=== PATIENT | female | born 1995 | race Caucasian/White ===

== ENCOUNTER 2024-06-17 08:13 | Emergency (ER) | payer OTHER, SELFPAY ==
[2024-06-17] VITALS (8 sets, daily range): BP systolic 104–113; BP diastolic 57–66; PULSE 77–99; RESP 20; TEMP 36.6; O2SAT 96–100; BMI 23.3
--- NOTE | 2024-06-17 09:16 | ED_ITS ---
HPI - Nausea/Vomiting/Diarrhea General Chief complaint: Nausea/Vomiting/Diarrhea Stated complaint: V/D Time Seen by Provider: 06/17/24 09:16 Source: patient Mode of arrival: Ambulatory History of Present Illness HPI Narrative: 28-year-old female without any past medical history presents to the ED from home for evaluation of nausea vomiting diarrhea ongoing present for the past 6 hours states it started after she had some saul last night states that since then has been unable to tolerate p.o. liquids and solids also reporting heartburn and headache. She denies any actual chest pain shortness of breath fever chills or any other GI/ symptoms at this time. Related Data Previous Rx's Medication Instructions Recorded famotidine 20 mg tablet (Pepcid) 20 mg PO DAILY 2 weeks #14 tabs 06/17/24 ondansetron 4 mg disintegrating 4 mg PO Q8H PRN nausea and 06/17/24 tablet vomiting 5 days #15 tabs Allergies Allergy/AdvReac Type Severity Reaction Status Date / Time No Known Drug Allergies Allergy Verified 06/17/24 08:35 Review of Systems Review of Systems Narrative: General: Denies fever, chills, weight loss HEENT: Denies headache, eye drainage, eye irritation, head trauma, sore throat, voice change Cardiovascular: Denies any chest pain, palpitations, shortness of breath, tachycardia Respiratory: Denies any shortness of breath, cough, wheeze, stridor GI/: Positive, nausea, vomiting, diarrhea, Denies any abdominal pain bright red blood per rectum, melanotic stools, urinary frequency, urinary retention, dysuria, hematuria MSK: Denies any joint pain, muscle pains, swelling Skin: Denies any rashes, lesions, discoloration Neuro: Denies any headache, lightheadedness, dizziness, fainting, weakness Psych: Denies SI/HI Patient History Social History Smoking Status: Never smoker Smoking Status: Never smoker Exam Narrative Exam Narrative: General: Cooperative, comfortable, well-developed, not in acute distress HEENT: Normocephalic, atraumatic, PERRLA, normal sclera, eyelids normal, Neck: Active full range of motion, atraumatic Chest: Normal to inspection, negative crepitus, no overlying erythema ecchymosis Respiratory: Normal respiratory effort, not in acute respiratory distress, clear to auscultation bilaterally negative cough, wheeze, tachypnea, rhonchi, rales Cardiology: Regular rate rhythm negative gallop, murmur, rubs GI/: Normal to inspection, soft, nonrigid, no tenderness to palpation, exam deferred MSK: Full range of active range of motion of all 4 extremities, atraumatic Skin: No rashes lesions noted Neuro: Alert awake oriented x3, moves all 4 extremities spontaneously, cranial nerves intact, able to answer all questions appropriately follows commands appropriately Psych: Cooperative, negative suicidal or homicidal ideations Initial Vital Signs Initial Vital Signs: Vital Signs Temperature 97.9 F 06/17/24 08:31 Pulse Rate 99 H 06/17/24 08:31 Respiratory Rate 20 06/17/24 08:31 Blood Pressure 108/60 06/17/24 08:31 Pulse Oximetry 100 06/17/24 08:31 Oxygen Delivery Method Room Air 06/17/24 08:31 Course Orders Ordered: ED Orders 06/17/24 09:40 Complete Blood Count AUTO DIFF Stat Comprehensive Metabolic Panel Stat Lipase Stat MAG [Magnesium] Stat Discontinued Medications Famotidine (Famotidine 20 Mg/2 Ml Vial) 20 mg IV NOW ONE Stop: 06/17/24 09:23 Last Admin: 06/17/24 10:00 Dose: 20 mg Documented By: LADONNA Sodium Chloride (Normal Saline 0.9%) 1,000 mls @ 1,000 mls/hr IV BOLUS ONE Stop: 06/17/24 10:20 Last Admin: 06/17/24 10:00 Dose: 1,000 mls/hr Documented By: LADONNA Ondansetron HCl (Ondansetron 4 Mg/2 Ml Inj) 4 mg IV NOW ONE Stop: 06/17/24 09:22 Last Admin: 06/17/24 10:00 Dose: 4 mg Documented By: LADONNA Vital Signs Vital signs: Vital Signs - 8 hr 06/17/24 08:31 06/17/24 08:37 06/17/24 08:38 Temperature 97.9 F Pulse Rate 99 H 85 87 Respiratory Rate 20 Blood Pressure 108/60 Pulse Oximetry 100 96 100 Oxygen Delivery Method Room Air 06/17/24 08:38 06/17/24 09:00 06/17/24 09:00 Temperature Pulse Rate 83 Respiratory Rate Blood Pressure 113/66 104/58 L Pulse Oximetry 100 Oxygen Delivery Method 02/20/25 09:30 06/17/24 09:30 06/17/24 09:43 Temperature Pulse Rate 79 92 H Respiratory Rate Blood Pressure 107/58 L Pulse Oximetry 100 100 Oxygen Delivery Method 06/17/24 09:43 06/17/24 10:00 06/17/24 10:00 Temperature Pulse Rate 94 H Respiratory Rate Blood Pressure 111/58 L 104/57 L Pulse Oximetry 100 Oxygen Delivery Method MDM - Nausea/Vomiting/Diarrhea Differential Diagnosis Differential diagnosis: Likely food poisoning, gastroenteritis, drug-induced nausea and vomiting, dehydration and other (Urinary tract infection) Lab Data 06/17/24 09:40 06/17/24 09:40 Labs: Lab Results 06/17/24 Range/Units 09:40 WBC 13.2 H (4.5-11.0) X10^3/uL RBC 4.36 (4.0-5.2) X10^6/uL Hgb 13.4 (12.0-16.0) g/dL Hct 39.6 (36-46) % MCV 91.0 (80-100) fL MCH 30.7 (26-34) PG MCHC 33.8 (30-36) % RDW 13.0 (11.6-14.8) % Plt Count 306 (150-400) X10^3/uL Neut % (Auto) 92.6 H (50-75) % Lymph % (Auto) 3.5 L (25-40) % [place] % (Auto) 3.5 (3-14) % Eos % (Auto) 0.0 L (2-4) % Baso % (Auto) 0.4 (0-2) % Neut # (Auto) 82798 H (8426-3106) /uL Lymph # (Auto) 500 L (1117-7393) /uL [place] # (Auto) 500 (0-900) /uL Eos # (Auto) 0 (0-450) /uL Baso # (Auto) 0 (0-100) /uL Sodium 136 L (137-145) mmol/L Potassium 4.4 (3.4-5.1) mmol/L Chloride 102 (98-107) mmol/L Carbon Dioxide 24 (22-32) mmol/L BUN 18 H (7-17) mg/dL Creatinine 0.72 (0.52-1.04) mg/dL Estimated GFR > 60 (>60) mL/min BUN/Creatinine Ratio 25.0 H (6-22) Glucose 107 H (70-100) mg/dL Calcium 8.8 (8.4-10.2) mg/dL Magnesium 1.8 (1.6-2.3) mg/dL Total Bilirubin 0.8 (0.2-1.3) mg/dL AST 27 (14-36) IU/L ALT 21 (<35) IU/L Alkaline Phosphatase 42 (38-126) U/L Total Protein 7.5 (6.3-8.2) g/dL Albumin 4.5 (3.5-5.0) g/dL Globulin 3.0 (1.7-4.1) g/dL Albumin/Globulin Ratio 1.5 (1.0-2.8) Lipase 59 (23-300) U/L Point of Care Testing Test Results Negative Urine Dip Bedside Urine Glucose Negative Bedside Urine Bilirubin - Negative Bedside Urine Ketone - Negative Urine Specific Joy 1.015 Bedside Urine Occult Blood - Negative Bedside Urine pH 7.0 Bedside Urine Protein - Negative Bedside Urine Urobilinogen - Negative Bedside Urine Nitrite - Negative Bedside Urine Leukocytes - Negative Esterase MDM Narrative Medical decision making narrative: 28-year-old female presenting for nausea vomiting diarrhea 6 hours ago after eating saul. She denies any actual abdominal pain states that the vomiting caused a headache which has since resolved since presentation here in the emergency department. She states that she has been unable to tolerate anything p.o. given her symptoms therefore decided come into the ED for further evaluation treatment. Patient had lab work performed here as well as urinalysis. Urinalysis not consistent with an acute urinary tract infection lab work unremarkable, patient was given fluids Pepcid and Zofran with complete resolution of her symptoms, she is well-appearing nontoxic she will be discharged home with symptomatic relief, patient was given strict return precautions she verbalized understanding of this and agrees to being discharged home with outpatient follow up Discharge Plan Departure Patient Disposition: Home Clinical Impression: Nausea vomiting and diarrhea Instructions: DI for Nausea -- Adult Activity Restrictions/Additional Instructions: Please follow up with the primary care doctor Please read the discharge instructions sheet carefully and bring all papers to all doctor follow-up visits, as it may contain information that your doctor may want to see. Disease processes change and evolve, if your symptoms worsen or if you develop any new symptoms that are concerning to you please return for evaluation. Your evaluation today does not show any evidence of any life- threatening/serious illnesses requiring admission to the hospital or surgery. Please follow-up with your doctor for re-evaluation in approximately 1 day. Seek immediate medical attention for any worrisome symptoms. *If you do not have a primary care provider please contact the [facility] Resource line at [phone]. They will ask some questions about your medical history and help get you set up with a doctor in the community. Prescriptions: New ondansetron 4 mg tablet,disintegrating 4 mg PO Q8H PRN (Reason: nausea and vomiting) 5 Days Qty: 15 0RF famotidine [Pepcid] 20 mg tablet 20 mg PO DAILY 14 Days Qty: 14 0RF Stand Alone Forms: Patient Portal/API/Survey
[2024-06-17 09:57] LABS: Add Manual Diff / Slide Review NO; Basophils Absolute Auto 0 /uL (0-100); Basophils Percent Auto 0.4 % (0-2); Eosinophils Absolute Auto 0 /uL (0-450); Hematocrit 39.6 % (36-46); Hemoglobin 13.4 g/dL (12.0-16.0); Lymphocytes Absolute Auto 500 /uL (1100-4500); Lymphocytes Percent Auto 3.5 % (25-40); Mean Corpuscular HGB Conc 33.8 % (30-36); Mean Corpuscular Hemoglobin 30.7 PG (26-34); Monocytes Absolute Auto 500 /uL (0-900); Monocytes Percent Auto 3.5 % (3-14); Neutrophils Absolute Auto 12200 /uL (1500-7000); Neutrophils Percent Auto 92.6 % (50-75); Platelet Count 306 X10^3/uL (150-400); Red Blood Cell Count 4.36 X10^6/uL (4.0-5.2); White Blood Cell Count 13.2 X10^3/uL (4.5-11.0)
[2024-06-17] MEDS: FAMOTIDINE 20 MG/2 ML VIAL IV (10:00)
[2024-06-17] MEDS: ONDANSETRON 4 MG/2 ML INJ IV (10:00)
[2024-06-17] MEDS: SODIUM CHLORIDE 0.9% 1,000 ML 1000 ML IV (10:00)
[2024-06-17 10:04] LABS: Alanine Aminotransferase 21 IU/L (<35); Albumin 4.5 g/dL (3.5-5.0); Albumin Globulin Ratio 1.5 (1.0-2.8); Alkaline Phosphatase 42 U/L (38-126); Aspartate Aminotransferase 27 IU/L (14-36); Bilirubin Total 0.8 mg/dL (0.2-1.3); Blood Urea Nitrogen 18 mg/dL (7-17); Calcium 8.8 mg/dL (8.4-10.2); Carbon Dioxide 24 mmol/L (22-32); Chloride 102 mmol/L (98-107); Estimated Glomerular Filt Rate > 60 mL/min (>60); Glucose 107 mg/dL (70-100); HEMOLYSIS < 15 (0-50); Lipase 59 U/L (23-300); Magnesium 1.8 mg/dL (1.6-2.3); Potassium 4.4 mmol/L (3.4-5.1); Sodium 136 mmol/L (137-145); Total Protein 7.5 g/dL (6.3-8.2)
== END 2024-06-17 10:46 | disposition home or self-care (01) ==
PROVIDERS: Emergency Provider Student in an Organized Health Care Education/Training Program
DX: R11.2 Nausea with vomiting, unspecified (principal); R19.7 Diarrhea, unspecified; R12 Heartburn; R51.9 Headache, unspecified
CPT/HCPCS: 36415; 80053; 81003; 81025; 83690; 83735; 85025; 96361; 96374; 96375; 99284; J2405